=== PATIENT | female | born 1985 | race Two or more races ===

== ENCOUNTER 2018-01-31 07:47 | Emergency (ER) | payer OTHER ==
[2018-01-31 07:53] VITALS: BMI 22.8
--- NOTE | 2018-01-31 08:24 | PDOC ---
History of Present Illness <Janae Rahman - Last Filed: 01/31/18 11:36> - General History Source: Patient Exam Limitations: No Limitations - History of Present Illness Initial Comments: 01/31/18 08:22 CHIEF COMPLAINT: Pelvic pain HISTORY OF PRESENT ILLNESS: This is a 32-year-old female g0 with a history of right ovarian cystectomy several years ago who presents for evaluation of what she describes as pelvic pain. She has had this pain for about 4 days, since the onset of her menses. She has noted that for the past 3 months, she has similar pain with each menstrual cycle. The pain is sharp, constant, radiates to the back and is unrelieved by Advil. She denies fevers/chills, dysuria, abnormal vaginal discharge, or any other symptoms. 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 Vital signs on arrival are notable for pulse of 120. REVIEW OF SYSTEMS: GENERAL/CONSTITUTIONAL: No fever or chills. No weakness. No weight change. HEAD, EYES, EARS, NOSE AND THROAT: No change in vision. No ear pain or discharge. No sore throat. CARDIOVASCULAR: No chest pain or palpitations. RESPIRATORY: No cough, wheezing, or shortness of breath. GASTROINTESTINAL: No nausea, vomiting, diarrhea or constipation. GENITOURINARY: See HPI. MUSCULOSKELETAL: No joint or muscle swelling or pain. No neck or back pain. SKIN: No rash or easy bruising. NEUROLOGIC: No headache, vertigo, loss of consciousness, or loss of sensation. PSYCHIATRIC: No depression or anxiety. ENDOCRINE: No increased thirst. No abnormal weight change. HEMATOLOGIC/LYMPHATIC: No anemia, easy bleeding, or history of blood clots. ALLERGIC/IMMUNOLOGIC: No hives or skin allergy. No latex allergy. PHYSICAL EXAM: GENERAL: The patient is awake, alert, and fully oriented, in no acute distress. HEAD: Normal with no signs of trauma. ENT: Pupils equal, round and reactive to light, extraocular movements intact, sclera anicteric, conjunctiva clear. Neck supple. LUNGS: Clear to auscultation bilaterally. Normal excursion. No respiratory distress or use of accessory muscles. CV: RRR, S1/S2, no MRG. Cap refill < 2 sec. ABDOMEN: Soft, non-distended, RUQ tenderness. EXTREMITIES: Normal range of motion, no edema. NEUROLOGICAL: Normal speech, normal gait. CN II-XII grossly intact. PSYCH: Normal mood, normal affect. SKIN: Warm, dry, normal turgor, no rashes or lesions noted. PROPERTY MANAGEMENT ASSISTANT: Normal external exam. No CMT or adnexal tenderness. Scant brown vaginal discharge. <Shruthi Barajas - Last Filed: 01/31/18 11:48> - General Chief Complaint: Pain, Acute Stated Complaint: PELVIC/BACK PAIN Time Seen by Provider: 01/31/18 08:13 Past History <Janae Rahman - Last Filed: 01/31/18 11:36> - Past Medical History Anemia: No Asthma: No Cancer: No Cardiac Disorders: No CVA: No COPD: No CHF: No Dementia: No Diabetes: No GI Disorders: No Disorders: No HTN: No Hypercholesterolemia: No Liver Disease: No Seizures: No Thyroid Disease: No - Surgical History Abdominal Surgery: No Appendectomy: No Cardiac Surgery: No Cholecystectomy: No Lung Surgery: No Neurologic Surgery: No Orthopedic Surgery: No - Reproductive History Is Patient Now?: No Cervical CA: No Dysfunctional Uterine Bleeding: No Ectopic : No Endometrial CA: No Polycystic Ovaries: No Therapeutic (s) & number: No Tubal Ligation: No - Suicide/Smoking/Psychosocial Hx Smoking History: Never smoked Hx Alcohol Use: Yes (socially) Drug/Substance Use Hx: No Substance Use Type: None Hx Substance Use Treatment: No <Shruthi Barajas - Last Filed: 01/31/18 11:48> - Past Medical History Allergies/Adverse Reactions: Allergies Allergy/AdvReac Type Severity Reaction Status Date / Time No Known Drug Allergies Allergy Verified 01/31/18 08:16 *Physical Exam - Vital Signs Last Vital Signs Temp Pulse Resp BP Pulse Ox 98.7 F 120 H 18 100/56 99 01/31/18 07:47 01/31/18 07:47 01/31/18 07:47 01/31/18 07:47 01/31/18 07:47 <Janae Rahman - Last Filed: 01/31/18 11:36> - Vital Signs Last Vital Signs Temp Pulse Resp BP Pulse Ox 98.7 F 120 H 18 100/56 99 01/31/18 07:47 01/31/18 07:47 01/31/18 07:47 01/31/18 07:47 01/31/18 07:47 <Shruthi Baarjas - Last Filed: 01/31/18 11:48> ED Treatment Course - LABORATORY CBC & Chemistry Diagram: 01/31/18 09:10 01/31/18 09:10 - ADDITIONAL ORDERS Additional order review: Laboratory Results 01/31/18 01/31/18 09:10 08:21 Sodium 139 Potassium 4.5 Chloride 105 Carbon Dioxide 27 Anion Gap 7 L BUN 8 Creatinine 0.6 Creat Clearance w eGFR > 60 Random Glucose 91 Calcium 9.5 Total Bilirubin 0.6 AST 21 ALT 26 Alkaline Phosphatase 66 Total Protein 7.6 Albumin 3.8 Urine Color Yellow Urine Appearance Slcloudy Urine pH 5.0 Ur Specific [place] 1.019 Urine Protein Negative Urine Glucose (UA) Negative Urine Ketones Negative Urine Blood 2+ H Urine Nitrite Negative Urine Bilirubin Negative Urine Urobilinogen 2.0 H Ur Leukocyte Esterase Negative Urine WBC (Auto) 6 Urine RBC (Auto) <1 Ur Epithelial Cells Rare Urine Mucus Few Urine HCG, Qual Negative 01/31/18 09:10 RBC 4.38 MCV 85.2 MCHC 34.2 RDW 14.2 MPV 9.3 Neutrophils % 71.6 D Lymphocytes % 15.8 D Monocytes % 8.9 Eosinophils % 3.2 Basophils % 0.5 - Medications Given in the ED: ED Medications Discontinued Medications Generic Name Dose Route Start Last Admin Trade Name Jaime PRN Reason Stop Dose Admin Ketorolac Tromethamine 30 mg 01/31/18 09:03 01/31/18 09:23 Toradol Injection - IVPUSH 01/31/18 09:04 Not Given ONCE ONE Ketorolac Tromethamine 30 mg 01/31/18 09:19 01/31/18 09:22 Toradol Injection - IM 01/31/18 09:20 30 mg ONCE ONE Administration <Janae Rahman - Last Filed: 01/31/18 11:36> - LABORATORY CBC & Chemistry Diagram: 01/31/18 09:10 01/31/18 09:10 <Shruthi Barajas - Last Filed: 01/31/18 11:48> Medical Decision Making - Medical Decision Making The patient was seen and evaluated in conjunction with midlevel provider under my direct supervision, ancillary studies were reviewed. I agree with the plan as outlined by BRIAN Barajas. in summary 32 YOF with pelvic pain. vitals with mild tachy, but also in pain. no fever. labs and lytes wnl. UA neg for infection TVUS with right ovarian cyst, possibly hemorrhagic ~3cm. doubt torsion with appearance. given toradol for pain relief. DC in stable condition, has capsule filler followup arranged already. 01/31/18 11:36 <Janae Rahman - Last Filed: 01/31/18 11:36> - Medical Decision Making 01/31/18 09:28 A/P: 32-year-old female complaining of pelvic pain, also with RUQ tenderness on exam. -Labs including CBC, CMP, UA/culture, urine -Transvaginal u/s r/o ovarian cyst, torsion -RUQ u/s -Toradol 30mg IM for pain if urine neg -Re-assess 01/31/18 11:44 Repeat HR is 78. U/s shows possible approx 3 cm exophytic hemorrhagic cyst vs dermoid cyst right lateral border of right ovary. Reviewed with patient and provided her a copy. She will discuss it at her capsule filler appt on 02/22. Pain is relieved. Return precautions reviewed. <Shruthi Barajas - Last Filed: 01/31/18 11:48> *DC/Admit/Observation/Transfer <Janae Rahman - Last Filed: 01/31/18 11:36> - Discharge Dispostion Decision to Admit order: No <Shruthi Barajas - Last Filed: 01/31/18 11:48> Diagnosis at time of Disposition: Pelvic pain - Discharge Dispostion Disposition: HOME Condition at time of disposition: Stable - Patient Instructions Printed Discharge Instructions: DI for Ovarian Cyst Additional Instructions: -Take ibuprofen as prescribed for pain -Follow up with Dr. Noland as scheduled on 02/22 -Return here for uncontrolled pain, fever, or any other concerning symptoms - Post Discharge Activity Forms/Work/School Notes: Back to Work
[2018-01-31 08:57] LABS: HCG,QUALITATIVE URINE Negative
[2018-01-31] MEDS ORDERED: KETOROLAC TROMETHAMINE 30 MG/1 ML VIAL IVPUSH ONE (09:03)
[2018-01-31 09:08] LABS: URINE APPEARANCE SLCLOUDY; URINE BILIRUBIN NEGATIVE (<2.0 mg/dL); URINE COLOR YELLOW; URINE GLUCOSE (UA) NEGATIVE (NEGATIVE); URINE KETONE NEGATIVE (NEGATIVE); URINE LEUK ESTERASE NEGATIVE (NEGATIVE); URINE NITRITE NEGATIVE (NEGATIVE); URINE PROTEIN NEGATIVE (NEGATIVE)
[2018-01-31 09:11] LABS: EPI CELLS RARE /HPF (FEW); URINE MUCUS FEW
[2018-01-31] MEDS ORDERED: KETOROLAC TROMETHAMINE 30 MG/1 ML VIAL IM ONE (09:19)
[2018-01-31] MEDS ORDERED: KETOROLAC TROMETHAMINE 30 MG/1 ML VIAL ONE (09:20)
[2018-01-31 09:23] LABS: BASO % 0.5 % (0-2.0); EOS % 3.2 % (0-4.5); HEMATOCRIT 37.3 % (32.4-45.2); HEMOGLOBIN 12.8 GM/dL (10.7-15.3); LYMPH % 15.8 % (8-40); MCH 29.2 pg (25.7-33.7); MCHC 34.2 g/dl (32.0-36.0); MEAN CELL VOLUME 85.2 fl (80-96); MEAN PLT VOLUME 9.3 fl (7.5-11.1); MONO % 8.9 % (3.8-10.2); NEUT % 71.6 % (42.8-82.8); PLATELET COUNT 196 K/MM3 (134-434); RBC 4.38 M/mm3 (3.60-5.2); RDW 14.2 % (11.6-15.6); WHITE BLOOD COUNT 6.4 K/mm3 (4.0-10.0)
[2018-01-31 09:50] LABS: ALBUMIN 3.8 g/dl (3.4-5.0); ANION GAP 7 MMOL/L (8-16); BLOOD UREA NITROGEN 8 mg/dL (7-18); CALCIUM 9.5 mg/dL (8.5-10.1); CHLORIDE 105 mmol/L (98-107); CO2 27 mmol/L (21-32); CREATININE 0.6 mg/dL (0.55-1.3); GLUCOSE,RANDOM 91 mg/dL (74-106); POTASSIUM 4.5 mmol/L (3.5-5.1); SGOT/AST 21 U/L (15-37); SODIUM 139 mmol/L (136-145)
[2018-01-31 09:52] LABS: ALK PHOS 66 U/L (45-117); BILIRUBIN,TOTAL 0.6 mg/dL (0.2-1); SGPT/ALT 26 U/L (13-61); TOT PROT 7.6 g/dl (6.4-8.2)
[2018-01-31 11:39] VITALS: BP 92/65; PULSE 78; TEMP 98.4
== END 2018-01-31 11:53 | disposition home or self-care (01) ==
LOC: JER 07:47
PROC: 3E0233Z Introduction of Anti-inflammatory into Muscle, Percutaneous Approach (ICD-10-PCS; principal; 2018-01-31)
DX: R10.2 Pelvic and perineal pain (principal)
CPT/HCPCS: 36415; 76705-TC; 76830-TC; 80053; 81003; 81015; 84703; 85025; 87070; 87086; 87205; 99283-25